=== PATIENT | female | born 1955 | race Caucasian/White ===

== ENCOUNTER 2018-07-31 06:10 | Day surgery (SDC) | payer OTHER ==
[~2018-07-31] VITALS: Ht 160 cm; Wt 72.6 kg
[2018-07-31 07:26] VITALS: Ht 160 cm; Wt 72.6 kg
[2018-07-31 07:30] VITALS: BP 138/82; PULSE 70; RESP 24
[2018-07-31] MEDS ORDERED: duloxetine PO (07:35)
[2018-07-31] MEDS ORDERED: [UNRECOGNIZED DRUG - CODE] PO (07:35)
[2018-07-31] MEDS ORDERED: lyrica PO (07:35)
[2018-07-31] MEDS ORDERED: levothyroxine PO (07:35)
[2018-07-31] MEDS ORDERED: zolpidem PO (07:35)
[2018-07-31] MEDS ORDERED: MIDAZOLAM 1 MG/ML 2 ML INJ ONE ×2 (08:12)
[2018-07-31] MEDS ORDERED: FENTAnyl 50 MCG/ML VIAL ONE (08:12)
[2018-07-31 08:30] VITALS: BP 145/82; PULSE 67; RESP 18
== END 2018-07-31 10:16 | disposition home or self-care (01) ==
LOC: GIL 06:10
PROVIDERS: ATTEND Internal Medicine Gastroenterology
DX: Z12.11 Encounter for screening for malignant neoplasm of colon (principal); K64.8 Other hemorrhoids; K64.4 Residual hemorrhoidal skin tags; K57.30 Diverticulosis of large intestine without perforation or abscess without bleeding
CPT/HCPCS: 45378; J2250; J3010